=== PATIENT | female | born 1980 | race Hispanic/Latino ===

== ENCOUNTER 2018-10-05 13:29 | Emergency (ER) | payer OTHER ==
[~2018-10-05 13:29] MED LIST: CHOL100018 PO; CYCL5TAB PO; DORZ10DR14 OU; DULO60CA63 PO; GABA-533 PO; HYDR200T4 PO; LACO200T2 PO; LEFL20TA18 PO; LORA1TAB3 PO; METO-408 PO; ONDA4TAB10 PO; SUMA100T16 PO; TRAM50TA4 PO; TRAZ-187 PO
[2018-10-05] MEDS ORDERED: ONDANSETRON HCL 4 MG/2 ML VIAL ONE (13:59)
[2018-10-05] MEDS ORDERED: SODIUM CHLORIDE 0.9% 1000ML 1,000 ML IV ONE (13:59)
[2018-10-05 14:51] LABS: BASOPHILS % (AUTO) 0.8 % (0.0-5.0); EOSINOPHILS % (AUTO) 0.2 % (0.0-8.0); HEMATOCRIT 37.9 % (36-48); LYMPHOCYTES % (AUTO) 6.9 % (21.0-51.0); MEAN CORPUSCULAR HEMOGLOBIN 28.8 pg (27.0-33.0); MEAN CORPUSCULAR HGB CONC 32.5 g/dL (32.0-36.0); MEAN CORPUSCULAR VOLUME 88.7 fL (79-99); MONOCYTES % (AUTO) 5.2 % (3.0-13.0); NEUTROPHILS % (AUTO) 86.9 % (40.0-77.0); PLATELET COUNT (AUTO) 220 K/uL (130-400); RED BLOOD CELL COUNT(AUTO) 4.27 MIL/uL (4.00-5.50); RED CELL DISTRIBUTION WIDTH 15.1 % (11.0-15.5); WHITE BLOOD COUNT (AUTO) 8.6 K/uL (4.8-10.8)
[2018-10-05 15:05] LABS: POTASSIUM 3.4 mmol/L (3.5-5.1)
[2018-10-05 15:10] LABS: ALBUMIN 3.5 g/dL (3.5-5.0); BILIRUBIN,DIRECT 0.1 mg/dL (0.0-0.3); BILIRUBIN,TOTAL 0.5 mg/dL (0.2-1.0); TOTAL PROTEIN, SERUM 6.9 g/dL (6.0-8.3)
[2018-10-05 15:15] LABS: HCG,QUAL RESULT NEGATIVE (NEGATIVE)
[2018-10-05 15:21] LABS: AMPHET/METH SCREEN,URINE NEGATIVE (NEGATIVE); BARBITURATE SCREEN, URINE NEGATIVE (NEGATIVE); BENZODIAZEPINES SCREEN,URINE NEGATIVE (NEGATIVE); CANNABINOID SCREEN,URINE NEGATIVE (NEGATIVE); COCAINE SCREEN,URINE NEGATIVE (NEGATIVE); OPIATE SCREEN,URINE NEGATIVE (NEGATIVE); PHENCYCLIDINE SCREEN,URINE NEGATIVE (NEGATIVE)
[2018-10-05] MEDS ORDERED: IBUPROFEN 600 MG TABLET ONE (19:42)
== END 2018-10-05 22:03 | disposition home or self-care (01) ==
LOC: EDH 13:29
DX: S00.83XA Contusion of other part of head, initial encounter (principal); I10 Essential (primary) hypertension; F32.9 Major depressive disorder, single episode, unspecified; M81.0 Age-related osteoporosis without current pathological fracture; Z79.899 Other long term (current) drug therapy; W06.XXXA Fall from bed, initial encounter; Y93.89 Activity, other specified; Y92.89 Other specified places as the place of occurrence of the external cause; Y99.8 Other external cause status
CPT/HCPCS: 36415; 70450; 80048; 80076; 80305; 81025; 82550; 84484 ×2; 84702; 85025; 93005; 96374; 99284; J2405; J7030

== ENCOUNTER 2018-12-13 18:48 | Emergency (ER) | payer OTHER ==
[2018-12-13 19:51] LABS: BASOPHILS % (AUTO) 0.7 % (0.0-5.0); EOSINOPHILS % (AUTO) 0.8 % (0.0-8.0); HEMATOCRIT 37.2 % (36-48); LYMPHOCYTES % (AUTO) 17.4 % (21.0-51.0); MEAN CORPUSCULAR HEMOGLOBIN 26.8 pg (27.0-33.0); MEAN CORPUSCULAR HGB CONC 32.2 g/dL (32.0-36.0); MEAN CORPUSCULAR VOLUME 83.1 fL (79-99); MONOCYTES % (AUTO) 7.7 % (3.0-13.0); NEUTROPHILS % (AUTO) 73.4 % (40.0-77.0); PLATELET COUNT (AUTO) 280 K/uL (130-400); RED BLOOD CELL COUNT(AUTO) 4.48 MIL/uL (4.00-5.50); RED CELL DISTRIBUTION WIDTH 15.5 % (11.0-15.5)
[2018-12-13 20:09] LABS: CREATININE 1.2 mg/dL (0.5-1.5); POTASSIUM 3.2 mmol/L (3.5-5.1)
[2018-12-13] MEDS ORDERED: HYDROCODONE/ACETAMINOPHEN 10/325 MG TAB ONE (20:10)
[2018-12-13 20:11] LABS: APPEARANCE,URINE Clear (CLEAR); BILIRUBIN,URINE Negative (NEGATIVE); COLOR,URINE Yellow (YELLOW); GLUCOSE, URINE (UA) Negative (NEGATIVE); KETONES,URINE Trace mg/dL (NEGATIVE); LEUKOCYTE ESTERASE ,URINE Negative (NEGATIVE); NITRATE,URINE Negative (NEGATIVE); OCCULT BLOOD,URINE Trace (NEGATIVE); PH,URINE 6.5 (5.0-8.0); PROTEIN,URINE 300 (NEGATIVE)
[2018-12-13 20:12] LABS: HCG,QUAL RESULT NEGATIVE (NEGATIVE)
[2018-12-13 20:14] LABS: ALBUMIN 4.1 g/dL (3.5-5.0); BILIRUBIN,TOTAL 0.5 mg/dL (0.2-1.0); TOTAL PROTEIN, SERUM 7.7 g/dL (6.0-8.3)
[2018-12-13] MEDS ORDERED: MAGNESIUM OXIDE 400 MG TABLET PO ONE (20:14)
[2018-12-13] MEDS ORDERED: POTASSIUM CHLORIDE 20 MEQ ERTAB PO ONE (20:14)
[2018-12-13 20:19] LABS: AMPHET/METH SCREEN,URINE NEGATIVE (NEGATIVE); BARBITURATE SCREEN, URINE NEGATIVE (NEGATIVE); BENZODIAZEPINES SCREEN,URINE NEGATIVE (NEGATIVE); CANNABINOID SCREEN,URINE NEGATIVE (NEGATIVE); COCAINE SCREEN,URINE NEGATIVE (NEGATIVE); OPIATE SCREEN,URINE NEGATIVE (NEGATIVE); PHENCYCLIDINE SCREEN,URINE NEGATIVE (NEGATIVE)
[2018-12-13 20:37] LABS: BACTERIA,URINE Few /HPF (None Seen); SQUAMOUS EPITHELIAL CELL,UR Few /HPF (0-2); WBC,URINE 0-1 /HPF (0-1)
[2018-12-13 20:38] LABS: MUCUS,URINE Few LPF (None Seen)
== END 2018-12-13 20:58 | disposition home or self-care (01) ==
LOC: EDH 18:48
DX: S52.592A Other fractures of lower end of left radius, initial encounter for closed fracture (principal); S52.612A Displaced fracture of left ulna styloid process, initial encounter for closed fracture; S82.832A Other fracture of upper and lower end of left fibula, initial encounter for closed fracture; I10 Essential (primary) hypertension; F32.9 Major depressive disorder, single episode, unspecified; M19.90 Unspecified osteoarthritis, unspecified site; X58.XXXA Exposure to other specified factors, initial encounter; Y93.89 Activity, other specified; Y92.009 Unspecified place in unspecified non-institutional (private) residence as the place of occurrence of the external cause; Y99.8 Other external cause status
CPT/HCPCS: 29125; 29515; 36415; 73110; 73610; 80053; 80305; 81001; 81025; 85025; 93005

== ENCOUNTER → 2023-02-06 | Outpatient (CLI) | payer BC, OTHER ==
[~2023-02-06] MED LIST changes: -DORZ10DR14 OU; +DORZ10DR32 OU; -DULO60CA63 PO; +DULO60CA64 PO
== END | disposition home or self-care (01) ==
LOC: RAH 11:14
PROVIDERS: ATTEND Internal Medicine Nephrology
DX: M47.812 Spondylosis without myelopathy or radiculopathy, cervical region (principal); M48.02 Spinal stenosis, cervical region
CPT/HCPCS: 72040

== ENCOUNTER → 2023-04-23 | Outpatient (CLI) | payer BC, OTHER ==
[~2023-04-23] MED LIST changes: -HYDR200T4 PO; +HYDR200T75 PO
== END | disposition home or self-care (01) ==
LOC: RAH 14:53
PROVIDERS: ATTEND Anesthesiology Pain Medicine
DX: M46.1 Sacroiliitis, not elsewhere classified (principal); M25.552 Pain in left hip; M25.551 Pain in right hip
CPT/HCPCS: 72200; 73522